=== PATIENT | male | born 1960 | race Caucasian/White ===

== ENCOUNTER → 2018-04-25 | Outpatient (CLI) | payer OTHER | LOC: FIMAGING 12:13 | PROVIDERS: ATTEND Physician Assistant | DX: I82.621 Acute embolism and thrombosis of deep veins of right upper extremity (principal) ==

== ENCOUNTER → 2018-07-21 | Outpatient (CLI) | payer OTHER | LOC: FIMAGING 10:13 | PROVIDERS: ATTEND Internal Medicine Hematology & Oncology | DX: I82.611 Acute embolism and thrombosis of superficial veins of right upper extremity (principal) ==